=== PATIENT | male | born 1970 | race Caucasian/White ===

== ENCOUNTER 2024-02-26 10:36 | Emergency (ER) | payer BC, SELFPAY ==
[2024-02-26 10:46] VITALS: BP 114/79
--- NOTE | 2024-02-26 12:20 | ED.GENMED ---
History of Present Illness
General
Chief Complaint: Musculo-Skeletal Complaint
Source: patient
Exam Limitations: none
Time Seen by Provider: 02/26/24 12:09
Nursing documentation reviewed up to this point in time: agreed with
History of Present Illness
History of Present Illness:
Patient is a 54-year-old male who presents to the ER complaining of right low back pain. He reports yesterday he mechanically tripped and [place] a park and landed on his right back. He denies hitting his head. He got up and felt fine
however today he twisted and heard a pop in his right lower back and now has pain with movement. He denies any shortness of breath. He denies any obvious hematuria. He complains of pain with movement. He has not taken for pain.
Patient denies any radiation to legs. Denies any bowel or bladder incontinence. Denies any weakness in legs
Review of Systems
Review of Systems
Allergies reviewed?: Yes
All Other Systems: ROS reviewed and negative except as documented in HPI and ROS
Constitutional: Reports no symptoms
Respiratory: Reports no symptoms
Cardiac: Reports no symptoms
ABD/GI: Reports no symptoms
Musculoskeletal: Reports back pain (right lower back pain )
Skin: Reports no symptoms
Neurological: Reports no symptoms
Psychiatric: Reports no symptoms
Phy Exam
General Physical Exam
General Presentation: no apparent distress
General age: appears stated age
General Skin: warm and dry
General Habitus: normal
General Mental: alert
General Hydration: appears well hydrated
Neurological Exam
Neurological Exam: alert and oriented x3
Musculoskeletal Exam
Musculoskeletal Exam: other (Swelling and ecchymosis to right paralumbar region nontender over flank no midline tenderness)
Skin Exam
Skin Exam: normal color
Psychiatric Exam
Psychiatric Exam: normal mood/affect
Course
Orders/Labs/Results
Orders:
Orders
02/26/24 12:20
diazePAM [Valium Injection] 5 mg IM NOW STA
02/26/24 12:22
Ketorolac [Toradol] 30 mg IM NOW STA
Lumbar Spine Complete, 4 View [CR Lumbar Spine Comp Min 4 Vw*] Urgent
Comment:
Reason For Exam: trauma
02/26/24 12:27
UA Reflex to Culture [Urinalysis Reflex To Culture] Urgent
Date Specimen was Collected: 02/26/24
Time Specimen was Collected: 12:23
Urine Microscopic Reflex Cult Urgent
Abnormal Lab Results
02/26/24
12:27
Ur Occult Blood Reflex Trace A
(Negative)
Urine RBC 3-6 A /HPF
(0-2)
Vital Signs
Initial and Last Documented VS:
Initial Vital Signs
Temp Pulse Resp BP Pulse Ox
98.1 F 76 16 114/79 98
02/26/24 10:46 02/26/24 10:46 02/26/24 10:46 02/26/24 10:46 02/26/24 10:46
Last Documented Vital Signs
Temp Pulse Resp BP Pulse Ox
98.1 F 79 16 138/74 98
02/26/24 10:46 02/26/24 14:22 02/26/24 14:22 02/26/24 14:22 02/26/24 14:22
MDM/Problems Addressed
Differential Diagnosis Includes:
Not limited to muscle sprain strain less likely fracture
MDM/Problems Addressed:
Symptoms are consistent with muscle spasm sprain strain. Patient feeling better after IM Valium and Toradol. no gross hematuria. Will DC with NSAIDs, Flexeril. Patient with no neurological deficit.
*Radiology
Radiology exam reviewed: radiology read reviewed
*Pulse Oximetry
Patient hypoxic: no
*Critical Care Note
Total Time (30-74mins, 75-104mins- exclusive of procedures): Not Applicable
ED Attending Note
-
Portions of this chart may have been created with voice recognition software.� Occasional wrong word or��sound alike� substitutions may have occurred due to the inherent limitations of voice recognition software.
Discharge Plan
Departure
Patient Disposition: Home (Routine Discharge)
Date of Disposition: 02/26/24
Time of Disposition: 14:21
Patient with high blood pressure during this ER visit?: No
Condition: Fair
Covid-19: Not Applicable
Discharge Problem:
Lumbar strain, Muscle spasm
Instructions: Back Muscle Strain (DC)
Prescriptions:
New
cyclobenzaprine 10 mg tablet
10 mg PO TID PRN (Reason: muscle spasm) Qty: 10 0RF
Referrals:
Suzi Boland MD [Family Provider] -
Stand Alone Forms: Return to Work
Activity Restrictions/Additional Instructions:
As discussed ice affected area for the next 24 to 48 hours 20 minutes at a time several times a day followed by warm moist heat. He may take ibuprofen 600 mg every hours with food. You were given a muscle relaxer which was sent to pharmacy to take
only as needed. This will cause drowsiness no driving or drink alcohol taking this medication. Follow-up with your family doctor the next 7 days and return if any worsening of symptoms.
Interventions
Interventions:
*Risk Screen - Suicide Last Done: 02/26/24 10:46
*General Assessment Last Done: 02/26/24 10:46
*Neglect/Abuse Screening Last Done: 02/26/24 10:46
ED- Fall Risk Assessment Last Done: 02/26/24 14:29
*ED COVID-19 Vaccine History Last Done: 02/26/24 11:25
*Nursing Disposition Last Done: 02/26/24 14:29
ED-Musculoskeletal Assessment Last Done: 02/26/24 11:25
Discharge Date and Time
Discharge Date/Time: 02/26/24 14:30
Print Language: MONTSERRATIAN
[2024-02-26 12:35] LABS: Urine Albumin Negative (Neg - Trace); Urine Bilirubin Negative (Negative); Urine Character Clear (Clear); Urine Color Yellow; Urine Glucose Negative (Negative); Urine Ketone Negative (Negative); Urine Leukocyte Negative (Negative); Urine Nitrite Negative (Negative); Urine Occult Blood Trace (Negative); Urine Specific Gravity 1.025 (<1.030); Urine Urobilinogen Negative (Neg - 1+)
[2024-02-26] MEDS: VALIUM INJECTION 5 MG IM (12:49)
[2024-02-26] MEDS: TORADOL 30 MG IM (12:50)
[2024-02-26 13:16] LABS: Urine Squamous Cell 0-2 /LPF (Few)
[2024-02-26 14:22] VITALS: BP 138/74
== END 2024-02-26 14:30 | disposition home or self-care (01) ==
LOC: EMR 10:36
PROVIDERS: Nurse Practitioner; EMERGENCY PHYSICIAN Emergency Medicine; FAMILY PHYSICIAN Family Medicine
DX: S39.012A Strain of muscle, fascia and tendon of lower back, initial encounter (principal); M62.838 Other muscle spasm; W01.0XXA Fall on same level from slipping, tripping and stumbling without subsequent striking against object, initial encounter
CPT/HCPCS: 99283; 96372; 72110; 81003; 81015

== ENCOUNTER 2024-09-17 09:51 | Emergency (ER) | payer BC, SELFPAY ==
[2024-09-17 09:56] VITALS: BP 127/76
--- NOTE | 2024-09-17 10:17 | ED.GENMED ---
History of Present Illness
General
Chief Complaint: Chest Problem
Time Seen by Provider: 09/17/24 10:17
History of Present Illness
History of Present Illness:
TIME OF INITIAL ENCOUNTER: 10:17 AM
HPI: Patient presents with about 4 weeks of left-sided chest discomfort as he points to the far lateral aspect of the left side of the chest. He has no new shortness of breath. He states that there could be an anxiety/stress component as his
symptoms appear to worsen when he is under more stress. He does not have any exertional symptoms. He was never diaphoretic.
EXAM:
GENERAL: Well appearing in no distress
HEENT: Moist oral mucosa
CARDIOVASCULAR: No murmurs, normal heart rate, regular rhythm, No significant chest wall tenderness
PULMONARY: No respiratory distress, breath sounds are clear and equal
ABDOMEN: Soft with no peritoneal signs, no tenderness, elevated BMI
NEUROLOGIC: Excellent strength all extremities, no coordination deficits
PSYCHIATRIC: Appropriate mental status, normal insight and judgement
EXTREMITIES: Nontender, no edema, moves all extremities equally
SKIN: No rash, no lesions
NUMBER AND COMPLEXITY OF PROBLEMS ADDRESSED AT THE ENCOUNTER
� Chronic conditions affecting care: Patient reports some elevation of his cholesterol levels, hypothyroidism
� Acute Exacerbation and/or Progression of Chronic Illness: This is an acute problem
� Differential Diagnosis includes: Stress/anxiety, musculoskeletal chest wall pain, low suspicion for ACS, pneumothorax very unlikely
AMOUNT AND/OR COMPLEXITY OF DATA TO BE REVIEWED AND ANALYZED
� I performed an independent evaluation of and my interpretation is:
EKG: Sinus 61, normal axis, no acute ST abnormality, no old to compare
CT:
X-rays: Chest x-ray by my read shows no acute abnormality
Laboratory Studies: Troponin 0.012, CBC unremarkable, sodium, bicarb, renal function, glucose unremarkable
Other:
� Review of other/old records: The patient was seen here in February 2024 with low back pain
� Clinical information was obtained by an independent historian: None needed
� Prescriptions/Medications Considered but not given:
� Further testing considered but not performed:
RISK OF COMPLICATIONS AND/OR MORBIDITY OR MORTALITY OF PATIENT MANAGEMENT
� Social determinants of health affecting care: Lives at home
� Discussion with other providers:
� Escalation of care including admission/observation vs risk of discharge considered: The patient is very well-appearing with several weeks of chest discomfort. Initial EKG unremarkable.
ANY OTHER UPDATES:
I favor more of a noncardiac etiology of patient's chest discomfort. Troponin EKG unremarkable despite 4 weeks of symptoms. I would still want him to follow-up with cardiology though.
On reassessment 12:30 PM: The patient appears very comfortable. Symptoms have been ongoing for over a month. He is to follow-up with both cardiology and GI.
Phy Exam
Physical Exam
Physical Exam:
See HPI
Course
Orders/Labs/Results
Orders:
Orders
09/17/24 09:59
Electrocardiogram (*1) Urgent
Reason for Study: Chest Pain
09/17/24 10:00
EKG- Treatment ONCE
09/17/24 10:30
Basic Metabolic Panel Urgent
Complete Blood Count/With Diff Urgent
Troponin I Urgent
09/17/24 11:01
CR Chest - 2 Views Urgent
Comment:
Reason For Exam: L CP
09/17/24 11:42
Potassium Urgent
Abnormal Lab Results
09/17/24
10:30
Chloride 108 H mmol/L
(98-107)
Glucose 104 H mg/dl
(70-99)
09/17/24 10:30
Vital Signs
Initial and Last Documented VS:
Initial Vital Signs
Temp Pulse Resp BP Pulse Ox
36.6 C 88 16 127/76 98
09/17/24 09:56 09/17/24 09:56 09/17/24 09:56 09/17/24 09:56 09/17/24 09:56
Last Documented Vital Signs
Temp Pulse Resp BP Pulse Ox
36.6 C 88 16 127/76 98
09/17/24 09:56 09/17/24 09:56 09/17/24 09:56 09/17/24 09:56 09/17/24 09:56
*Critical Care Note
Total Time (30-74mins, 75-104mins- exclusive of procedures): Not Applicable
ED Attending Note
-
Portions of this chart may have been created with voice recognition software.� Occasional wrong word or��sound alike� substitutions may have occurred due to the inherent limitations of voice recognition software.
Discharge Plan
Departure
Patient Disposition: Home (Routine Discharge)
Date of Disposition: 09/17/24
Time of Disposition: 12:26
Patient with high blood pressure during this ER visit?: Yes
Discharge Problem:
Chest pain
Instructions: Chest Pain CBC Follow Up, BLOOD PRESSURE
Prescriptions:
No Action
cyclobenzaprine 10 mg tablet
10 mg PO TID PRN (Reason: muscle spasm) Qty: 10 0RF
Referrals:
Sanjiv Lara MD [Active] - Follow up in 2-3 days
Suzi Boland MD [Family Provider] -
Vickie Brody DO [Active] - Follow up in 2-3 days
Activity Restrictions/Additional Instructions:
I have given you the contact information for a local paper rewinder operator, Dr. Lara. Somebody from their office should be calling you soon to arrange close follow-up. I have also given you the name of a GI doctor, Dr. Brody. Please call their office
for follow-up.
Interventions
Interventions:
*Risk Screen - Suicide Last Done: 09/17/24 09:56
*General Assessment Last Done: 09/17/24 10:18
*Neglect/Abuse Screening Last Done: 09/17/24 09:56
*ED- Fall Risk Assessment Last Done: 09/17/24 10:18
*ED COVID-19 Vaccine History Last Done: 09/17/24 10:18
ED- Cardiac Assessment Last Done: 09/17/24 10:18
ED- Pulmonary Assessment Last Done: 09/17/24 10:18
Discharge Date and Time
Print Language: TANZANIAN
[2024-09-17 10:18] VITALS: BMI 30.5
[2024-09-17 11:02] LABS: Blood Urea Nitrogen 18 mg/dl (9-20); Calcium 9.5 mg/dl (8.4-10.2); Carbon Dioxide 28 mmol/L (22-30); Chloride 108 mmol/L (98-107); Estimated Creatinine Clearance > 125 ml/min; Glucose 104 mg/dl (70-99); Sodium 141 mmol/L (135-145); eGFR > 60.00
[2024-09-17 11:08] LABS: Troponin I 0.012 ng/ml
[2024-09-17 11:21] LABS: % Basophils 0.8 % (0-2); % Eosinophils 2.6 % (0-6); % Immature Granulocytes 0.3 % (0-0.5); % Lymphocytes 34.1 % (20.5-51.1); % Monocytes 6.7 % (1.7-9.3); % Neutrophils 55.5 % (42.2-75.2); Absolute Basophils 0.1 10^3/uL (0-0.2); Absolute Eosinophils 0.2 10^3/uL (0-0.7); Absolute Lymphocytes 2.5 10^3/uL (1.2-3.4); Absolute Monocytes 0.5 10^3/uL (0.1-0.6); Absolute Neutrophils 4.1 10^3/uL (1.4-6.5); Hematocrit 39.7 % (39.0-52.0); Hemoglobin 13.4 g/dL (13.0-18.0); Mean Corp Hgb Conc. 33.8 g/dL (33.0-37.0); Mean Corpuscular Hgb 28.1 pg (27.0-31.0); Mean Corpuscular Volume 83.2 fL (80.0-94.0); Nucleated Red Blood Cells % 0 % (-); Red Blood Cell Count 4.77 10^6/uL (4.70-6.10); Red Cell Dist. Width 13.1 % (11.5-14.5); White Blood Cell Count 7.4 10^3/uL (4.8-10.8)
[2024-09-17 12:40] VITALS: BP 125/75
== END 2024-09-17 12:41 | disposition home or self-care (01) ==
LOC: EMR 09:51
PROVIDERS: EMERGENCY PHYSICIAN Emergency Medicine; FAMILY PHYSICIAN Family Medicine
DX: R07.89 Other chest pain (principal)
CPT/HCPCS: 99283; 71046; 80048; 84484; 85025; 93005

== ENCOUNTER → 2024-09-19 07:09 | Outpatient (REF) | payer BC, SELFPAY | LOC: RCS 07:09 | PROVIDERS: ATTENDING PHYSICIAN Internal Medicine Cardiovascular Disease; FAMILY PHYSICIAN Family Medicine | DX: R07.9 Chest pain, unspecified (principal) | CPT/HCPCS: 93017 ==

== ENCOUNTER → 2024-10-02 07:06 | Outpatient (REF) | payer BC, SELFPAY | LOC: HWRCS 07:06 | PROVIDERS: ATTENDING PHYSICIAN Internal Medicine Cardiovascular Disease; FAMILY PHYSICIAN Family Medicine | DX: R07.9 Chest pain, unspecified (principal); R06.02 Shortness of breath | CPT/HCPCS: 78452; 93017; A9500 ==

== ENCOUNTER → 2024-10-04 08:05 | Outpatient (REF) | payer BC, SELFPAY | LOC: HWRCS 08:05 | PROVIDERS: ATTENDING PHYSICIAN Internal Medicine Cardiovascular Disease; FAMILY PHYSICIAN Family Medicine | DX: R07.9 Chest pain, unspecified (principal) | CPT/HCPCS: 93306 ==

== ENCOUNTER → 2025-04-10 18:42 | Outpatient (REF) | payer BC, SELFPAY | LOC: RAD 18:42 | PROVIDERS: ATTENDING PHYSICIAN Chiropractor; FAMILY PHYSICIAN Family Medicine | DX: M53.2X7 Spinal instabilities, lumbosacral region (principal); R10.20 Pelvic and perineal pain unspecified side | CPT/HCPCS: 72110; 72170 ==